=== PATIENT | male | born 1955 | race Caucasian/White ===

== ENCOUNTER 2017-12-02 08:06 | Day surgery (SDC) | payer OTHER ==
[2017-12-02] MEDS ORDERED: LIDOCAINE 4% SOLUTION 50 ML BTL (10:22)
[2017-12-02] MEDS ORDERED: FENTAnyl 50 MCG/ML VIAL (11:24)
[2017-12-02] MEDS ORDERED: MIDAZOLAM 1 MG/ML 2 ML INJ ×3 (11:24)
== END 2017-12-02 12:57 | disposition home or self-care (01) ==
LOC: GIL 08:06
DX: R19.5 Other fecal abnormalities (principal); D12.0 Benign neoplasm of cecum; K29.50 Unspecified chronic gastritis without bleeding; K64.4 Residual hemorrhoidal skin tags; I10 Essential (primary) hypertension
CPT/HCPCS: 43239; 82962; 88305; 88312